=== PATIENT | male | born 1965 | race Two or more races ===

== ENCOUNTER 2020-07-04 21:52 | Emergency (ER) | payer OTHER ==
[~2020-07-04] VITALS: Ht 170.2 cm; Wt 91.0 kg
[2020-07-04] MEDS ORDERED: METHOCARBAMOL 750 MG TABLET PO ONE (23:30)
--- NOTE | 2020-07-04 23:39 | NUR ---
RECIEVED REPORT FROM ANGÉLICA.
--- NOTE | 2020-07-05 00:19 | NUR ---
PT STATES ONE WEEK AGO FRIDAY PT TIPPED OVER BOX AT WORK AND TRIED TO CATCH HIMSELF WITH HIS RIGHT SHOULDER AND INJURED IT. THE SHOULDER IS SORE TO THE TOUCH AND 8/10 PAIN.
[2020-07-05] MEDS ORDERED: METHOCARBAMOL 750 MG TABLET ONE (00:27)
[2020-07-05] MEDS ORDERED: IBUPROFEN 600 MG TABLET PO ONE (00:30)
[2020-07-05] MEDS ORDERED: ACETAMINOPHEN 500 MG TABLET PO ONE (00:30)
[2020-07-05] MEDS ORDERED: IBUPROFEN 200 MG TABLET ONE (00:45)
[2020-07-05] MEDS ORDERED: ACETAMINOPHEN 500 MG TABLET ONE (00:45)
[2020-07-05 00:47] VITALS: BP 125/85
--- NOTE | 2020-07-05 00:49 | NUR ---
TASK RN: PT MEDICATED PER MAR RIGHTS VERIFIED AWAITING DC PAPERS AT THIS TIME.
--- NOTE | 2020-07-05 01:07 | NUR ---
Patient given discharge instructions and they have confirmed that they understand the instructions. Patient ambulatory with steady gait. No further questions at time of departure.
== END 2020-07-05 01:16 | disposition home or self-care (01) ==
LOC: ED 07-05 00:09
DX: S46.911A Strain of unspecified muscle, fascia and tendon at shoulder and upper arm level, right arm, initial encounter (principal); X58.XXXA Exposure to other specified factors, initial encounter; Y93.89 Activity, other specified; Y92.89 Other specified places as the place of occurrence of the external cause; Y99.8 Other external cause status
CPT/HCPCS: 99284